=== PATIENT | female | born 1945 | race Caucasian/White ===

== ENCOUNTER 2023-11-13 18:13 | Emergency (ER) | payer MEDICARE, OTHER, SELFPAY ==
[2023-11-13 18:16] VITALS: BP 139/70; PULSE 61; RESP 16; TEMP 36.4; O2SAT 98; BMI 17.7
[2023-11-13] MEDS: Lidocaine 1% /Epi 1:100 (20ml) 20 ML Vial INFILT (18:32)
--- NOTE | 2023-11-13 18:44 | CT_ITS ---
STUDY: CT BRAIN WITHOUT CONTRAST REASON FOR EXAM: Female, 78 years old. injury Individualized dose optimization techniques were used for this CT. TECHNIQUE: Transaxial CT imaging of the brain was performed without administration of intravenous contrast material. COMPARISON: None FINDINGS: There are calcifications around the carotid artery. These are noted in the cavernous carotid arteries. Normal calvarium. Normal soft tissues. There is mild cerebral atrophy with widening of the extra-axial spaces and ventricular dilatation. There are areas of decreased attenuation within the white matter tracts of the supratentorial brain, consistent with microvascular disease changes. Normal basal ganglia and thalami. Normal brainstem. There is mild cerebellar atrophy. There is no intracranial hemorrhage. There are no findings of an acute ischemic infarction. Degenerative changes of the mandibular condyles. ASPECTS Score for Acute Strokes: 10/ CT/Brain/Head without Contrast IMPRESSION: There are no acute findings. Chronic involutional changes of the brain. Electronically Signed: Michael Black MD at 19:06 EDT ,
--- NOTE | 2023-11-13 18:51 | EX.ED.GENINJ ---
HPI History of Present Illness Chief Complaint: Fall Informant: patient and friend Narrative Narrative: 78-year-old female presenting to the emergency room with head injury and forehead laceration. Patient states that she was walking to her friends tripped and fell and struck her head on the concrete. She believes her glasses cut the right periorbital region. Unsure of last tetanus. No no loss of conscious. No vomiting. Patient states she has generalized soreness and some bruising but no areas that she has concerns that she may have broken. She is not on a blood thinner. [facility], [facility] Medical History Hypothyroidism Insomnia Hypertension Allergy/AdvReac Type Severity Reaction Status Date / Time No Known Allergies Allergy Verified 11/13/23 18:15 Social History Smoking Status: Never smoker ROS ROS ED Constitutional Constitutional ED: Denies chills, fever(s) or weight loss Eyes Eyes: Denies change in vision or diplopia ENT ENT ED: Denies ear pain, rhinorrhea or sore throat Cardiovascular Cardiovascular: Denies chest pain, orthopnea, palpitations or racing heartbeat Respiratory/Chest Respiratory/Chest: Denies cough, dyspnea or orthopnea Gastrointestinal Gastrointestinal: Denies abdominal pain, diarrhea, nausea or vomiting Genitourinary Genitourinary ED: Denies dysuria, hematuria or urinary frequency Musculoskeletal Musculoskeletal: Denies arthralgias, back pain, myalgias or neck pain Integumentary Reports other Details: Facial laceration ; Denies abscess or rash Neurologic Neurologic: Reports headache(s); Denies weakness Psychiatric Psychiatric: Denies anxiety, depression, suicidal ideation or suicidal thoughts Endocrine Endocrinology: Denies polydipsia, polyphagia or polyuria Allergic/Immunologic Allergic/Immunologic ED: Denies mouth swelling, tongue swelling or urticaria EXAM Physical Exam Const Vital Signs: 11/13/23 18:16 11/13/23 18:26 Temperature 97.5 F L Temperature Source Temporal Pulse Rate 61 Respiratory Rate 16 Respiratory Effort Normal Respiratory Depth Normal Respiratory Pattern Normal Blood Pressure 139/70 H Blood Pressure Mean 93 Pulse Ox 98 Oxygen Delivery Method Room Air Room Air Positive well nourished and well developed General Appearance ED: well developed HEENT Reports normocephalic and moist mucous membranes HEENT Narrative: There is a 2.5 cm linear laceration to the lateral aspect of the right periorbital region extending up to the very end of the eyebrow. There is no palpable bony depression. No ocular injury noted. The wound shows mild venous bleeding and gaping. Eyes PERRL and EOMs intact bilaterally Neck full ROM, no lymphadenopathy, supple and no JVD Neck Narrative: No tenderness of the neck General: Negative for tenderness Resp normal respiratory effort and clear to auscultation bilaterally Cardio regular rate, regular rhythm and no murmurs GI normal to inspection, nondistended, normoactive bowel sounds and non-tender Palpation: soft Back/Spine no CVA tenderness and normal ROM Extremity normal to inspection General Extremety ED: Negative for edema General Extremity: Negative for edema Neuro oriented x3 and CN's II-XII intact bilaterally Sensorium / Orientation: alert Motor Exam: strength 5/5 throughout Psych mental status grossly normal Mood & Affect: Negative for depressed or tearful Skin no rashes or lesions noted and no wounds MDM MDM MDM Narrative Medical decision making narrative: Wound was locally anesthetized with 1% lidocaine with epinephrine. Wound was washed with Shur-Clens explored. No foreign bodies were noted. Was closed using a total of 3 simple interrupted 5-0 Ethilon sutures. Good homeostasis was obtained. Once the wound was cleaned there appears to be about 1/2 cm abrasion just inferior posterior to the laceration. This does not appear to need any suturing appears superficial in nature. CT the brain was obtained which does not demonstrate any intracranial hemorrhage or hematoma or fracture. Tetanus was updated. Patient will use Tylenol for pain. Would recommend ice stitches and to be removed in 5 to 7 days History & Record Review Discussion w/independent historian: Patient and Friend Radiography Diagnostic Testing: Clinical Impression(s) from Imaging Studies Brain CT 11/13/23 18:44 IMPRESSION: There are no acute findings. Chronic involutional changes of the brain. Electronically Signed: Michael Black MD at 19:06 EDT , Discharge Plan Triage Chief Complaint: Fall ED Provider: Dandy Mandujano Dx/Rx/DC Orders Clinical Impression: Fall, Face lacerations, Abrasion of face, Head injury Instructions: ED Head Injury (Adult), ED Laceration, All Closures Primary Care Provider: Care Physician,No Primary Referrals: Care Physician,No Primary [Primary Care Provider] - Activity Restrictions/Additional Instructions: Stitches do need to be removed in 5 to 7 days. I would recommend using some antibiotic ointment about once a day. Soap and water are okay. No swimming. Monitor for any worsening signs or symptoms of infection or head injury. Return if needed. Print Language: Com[place]an Disposition Disposition: Home, Self Care
[2023-11-13] MEDS: Diphth,Pertuss(Acell),Tet Vac 0.5 ML Vial IM (19:05)
[2023-11-13 19:15] VITALS: BP 132/66; PULSE 62; RESP 16; TEMP 36.8; O2SAT 99
== END 2023-11-13 19:46 | disposition home or self-care (01) ==
PROVIDERS: Emergency Provider Emergency Medicine; Visit Provider Emergency Medicine
DX: S01.81XA Laceration without foreign body of other part of head, initial encounter (principal); Z97.3 Presence of spectacles and contact lenses; I10 Essential (primary) hypertension; R51.9 Headache, unspecified; W01.0XXA Fall on same level from slipping, tripping and stumbling without subsequent striking against object, initial encounter; Z23 Encounter for immunization
CPT/HCPCS: 12011; 70450; 90471; 90715; 99284